=== PATIENT | male | born 1970 | race Caucasian/White ===

== ENCOUNTER → 2021-05-14 | Outpatient (CLI) | payer OTHER | LOC: SLEEP 21:30 | DX: G47.33 Obstructive sleep apnea (adult) (pediatric) (principal) | CPT/HCPCS: 95810 ==

== ENCOUNTER 2021-08-17 17:24 | Emergency (ER) | payer OTHER ==
[2021-08-17 18:31] LABS: HEMOGLOBIN 14.5 gm/dl (14.0-17.5); RED BLOOD COUNT 5.11 M/UL (4.20-5.50); WHITE BLOOD COUNT 7.8 K/UL (4.5-11.0)
[2021-08-17 18:49] LABS: BUN/CREATININE RATIO 27 (0-10)
== END 2021-08-17 23:23 | disposition home or self-care (01) ==
LOC: ER1 17:24
PROVIDERS: Physician Assistant
DX: R10.31 Right lower quadrant pain (principal); R10.32 Left lower quadrant pain; I10 Essential (primary) hypertension; Q24.9 Congenital malformation of heart, unspecified
CPT/HCPCS: 80053; 81001; 82150; 82550; 82553; 83605; 83690; 84484; 85025; 85610; 96374; 96375; 99284; J2270; J2405; Q9967